=== PATIENT | male | born 1975 | race Caucasian/White ===

== ENCOUNTER → 2017-04-20 | Emergency (ER) | payer OTHER ==
[~2017-04-20] VITALS: Ht 177.8 cm; Wt 83.0 kg
[~2017-04-20] MED LIST: LEVSIN/SL0.125 MG PO; NAPROXEN500 M1 PO; NORFLEX100MG PO; SEPTRA DS TABLE1 TAB PO; ZYRTEC10 MG PO
== END | disposition home or self-care (01) ==
LOC: ER 08:16
DX: L03.115 Cellulitis of right lower limb (principal)

== ENCOUNTER 2018-01-06 14:28 | Outpatient (CLI) | payer OTHER | END 2018-01-06 17:05 | disposition home or self-care (01) | LOC: RAD 14:28 | DX: L05.01 Pilonidal cyst with abscess (principal) ==

== ENCOUNTER 2018-01-08 11:20 | Outpatient (CLI) | payer OTHER ==
[2018-01-13] MEDS ORDERED: CANNABIS MEDICINAL (10:42)
== END 2018-01-08 14:55 | disposition home or self-care (01) ==
LOC: LAB 11:20
DX: L05.01 Pilonidal cyst with abscess (principal)

== ENCOUNTER 2018-01-14 09:01 | Outpatient (CLI) | payer OTHER ==
[~2018-01-14 09:01] MED LIST changes: +CANNABIS MEDICINAL
== END 2018-01-14 10:00 | disposition home or self-care (01) ==
LOC: MRI 09:01
DX: H81.22 Vestibular neuronitis, left ear (principal); H81.8X2 Other disorders of vestibular function, left ear; D33.3 Benign neoplasm of cranial nerves; Z92.3 Personal history of irradiation
CPT/HCPCS: 70553

== ENCOUNTER 2018-01-16 08:16 | Day surgery (SDC) | payer OTHER ==
[2018-01-16] MEDS ORDERED: PERCOCET 5-3251 EACH PO (11:48)
[2018-01-16] MEDS ORDERED: INTESTINEX680 M1 PO (11:48)
[2018-01-16] MEDS ORDERED: BACTRIM DS TAB1 EACH PO (11:48)
== END 2018-01-16 15:06 | disposition home or self-care (01) ==
LOC: CIR.AMB 08:16
DX: L05.01 Pilonidal cyst with abscess (principal)

== ENCOUNTER 2018-06-29 09:07 | Emergency (ER) | payer OTHER ==
[~2018-06-29] VITALS: Ht 177.8 cm; Wt 77.1 kg
[~2018-06-29 09:07] MED LIST changes: +BACTRIM DS TAB1 EACH PO; +INTESTINEX680 M1 PO; +PERCOCET 5-3251 EACH PO
== END 2018-06-29 11:39 | disposition home or self-care (01) ==
LOC: ER 09:07
DX: L02.212 Cutaneous abscess of back [any part, except buttock and flank] (principal)

== ENCOUNTER 2018-10-11 03:49 | Emergency (ER) | payer OTHER ==
[~2018-10-11] VITALS: Ht 177.8 cm; Wt 85.7 kg
== END 2018-10-11 09:25 | disposition home or self-care (01) ==
LOC: ER 03:49
DX: K52.9 Noninfective gastroenteritis and colitis, unspecified (principal)

== ENCOUNTER 2018-11-26 05:53 | Emergency (ER) | payer OTHER ==
[~2018-11-26] VITALS: Ht 177.8 cm; Wt 85.3 kg
== END 2018-11-26 09:59 | disposition home or self-care (01) ==
LOC: ER 05:53
DX: N49.2 Inflammatory disorders of scrotum (principal)

== ENCOUNTER 2019-01-21 10:11 | Outpatient (CLI) | payer OTHER | END 2019-01-21 10:18 | disposition home or self-care (01) | LOC: LAB 10:11 | DX: J11.1 Influenza due to unidentified influenza virus with other respiratory manifestations (principal) ==

== ENCOUNTER 2019-04-30 21:12 | Emergency (ER) | payer OTHER ==
[~2019-04-30] VITALS: Ht 177.8 cm; Wt 86.6 kg
[2019-04-30] MEDS ORDERED: ZITHROMAX500 MG PO (22:38)
[2019-04-30] MEDS ORDERED: DOLOGEN CAPLET1 EACH PO (22:38)
[2019-04-30] MEDS ORDERED: TUSNEL LIQUID178 ML PO (22:38)
== END 2019-04-30 22:54 | disposition home or self-care (01) ==
LOC: ER 21:12
DX: J06.9 Acute upper respiratory infection, unspecified (principal)

== ENCOUNTER 2019-05-03 19:59 | Emergency (ER) | payer OTHER ==
[~2019-05-03] VITALS: Ht 177.8 cm; Wt 87.5 kg
[~2019-05-03 19:59] MED LIST changes: +DOLOGEN CAPLET1 EACH PO; +TUSNEL LIQUID178 ML PO; +ZITHROMAX500 MG PO
[2019-05-03] MEDS ORDERED: PROMETH-CODEIN 65 ML PO (20:28)
[2019-05-03] MEDS ORDERED: MUCINEX1200 MG PO (20:28)
== END 2019-05-03 21:05 | disposition home or self-care (01) ==
LOC: ER 19:59
DX: J06.9 Acute upper respiratory infection, unspecified (principal); J40 Bronchitis, not specified as acute or chronic

== ENCOUNTER 2019-08-15 10:32 | Emergency (ER) | payer OTHER ==
[~2019-08-15] VITALS: Ht 177.8 cm; Wt 85.3 kg
[~2019-08-15 10:32] MED LIST changes: +MUCINEX1200 MG PO; +PROMETH-CODEIN 65 ML PO
[2019-08-15] MEDS ORDERED: CLEOCIN HCL300 MG (10:39)
[2019-08-15] MEDS ORDERED: CIPRO500 MG PO (11:45)
== END 2019-08-15 11:53 | disposition home or self-care (01) ==
LOC: ER 10:32
DX: L03.818 Cellulitis of other sites (principal); N49.2 Inflammatory disorders of scrotum

== ENCOUNTER → 2020-01-18 | Emergency (ER) | payer OTHER ==
[~2020-01-18] VITALS: Ht 152.4 cm; Wt 81.6 kg
[~2020-01-18] MED LIST changes: +CIPRO500 MG PO; +CLEOCIN HCL300 MG
== END | disposition home or self-care (01) ==
LOC: ER 19:24
DX: J06.9 Acute upper respiratory infection, unspecified (principal); R05 Cough

== ENCOUNTER 2020-01-28 09:12 | Emergency (ER) | payer OTHER ==
[~2020-01-28] VITALS: Ht 177.8 cm; Wt 83.5 kg
== END 2020-01-28 12:43 | disposition home or self-care (01) ==
LOC: ER 09:12
DX: B34.9 Viral infection, unspecified (principal); B96.0 Mycoplasma pneumoniae [M. pneumoniae] as the cause of diseases classified elsewhere; Z03.818 Encounter for observation for suspected exposure to other biological agents ruled out

== ENCOUNTER → 2020-03-13 10:23 | Outpatient (CLI) | payer OTHER ==
[~2020-03-13 10:23] MED LIST changes: +LEVSIN/SL0.125 MG SL
== END | disposition home or self-care (01) ==
LOC: LAB 10:23
PROVIDERS: ATTEND General Practice
DX: E11.9 Type 2 diabetes mellitus without complications (principal); E03.8 Other specified hypothyroidism; N39.0 Urinary tract infection, site not specified; Z00.00 Encounter for general adult medical examination without abnormal findings; Z11.2 Encounter for screening for other bacterial diseases; E78.49 Other hyperlipidemia

== ENCOUNTER → 2020-03-24 | Emergency (ER) | payer OTHER ==
[~2020-03-24] VITALS: Ht 177.8 cm; Wt 85.7 kg
== END | disposition home or self-care (01) ==
LOC: ER 00:35
DX: K52.9 Noninfective gastroenteritis and colitis, unspecified (principal)

== ENCOUNTER 2020-11-17 10:04 | Emergency (ER) | payer OTHER ==
[~2020-11-17] VITALS: Ht 177.8 cm; Wt 86.2 kg
[2020-11-17] MEDS ORDERED: NORFLEX100MG PO (10:31)
[2020-11-17] MEDS ORDERED: KETO10TA2 PO (10:31)
== END 2020-11-17 10:36 | disposition home or self-care (01) ==
LOC: ER 10:04
DX: M54.5 Low back pain (principal)